=== PATIENT | male | born 1990 | race Caucasian/White ===

== ENCOUNTER 2020-09-29 15:24 | Inpatient (IN) | payer SELFPAY ==
[2020-09-29 15:25] VITALS: BP 148/77; PULSE 98; RESP 17; TEMP 37.1; O2SAT 99; BMI 24.7
--- NOTE | 2020-09-29 15:36 | ED.DCSUM_ITS ---
History of Present Illness Chief Complaint: Substance Abuse Informant: Patient, Significant Other Limited by: - - Anger issues per nursing squad Onset: Month(s) Context: Gradual Onset Timing: Continuous Quality: Greater than 1/5 of vodka per day Location: Not applicable Current Severity: Moderate Maximum Severity: Moderate Worsened by: Significant decrease in alcohol consumption today Relieved by: Nothing Associated Symptoms: Nausea, diarrhea, tremors Narrative: Is a 29-year-old male who presents for alcohol detox. He drinks greater than 1/5 of vodka per day. He went into a rehab program in 2019 after he was cited for driving under the influence. He only had 1 or 2 drinks today. He denies smoking. Last use of marijuana 3 days ago. There is no history of hepatitis. He denies history of pancreatitis. He denies nausea, vomiting or abdominal pain. He denies headache, visual, ocular auditory symptoms. He denies rhinorrhea or congestion. He denies sore throat. He denies chest pain or shortness of breath. He denies bruising easily. He denies black or maroon- colored stool. He denies urologic symptoms. Prior similar symptoms: Yes - 2019 Recent Illness/Hospitalization: Yes - 2019 - Past Medical History (1) Alcoholism Status: Acute Past Medical History - Allergies and Home Meds Allergies/Adverse Reactions: Allergies haloperidol [From Haldol] Allergy (Verified 09/29/20 15:28) Other Primary Care Physician: [facility] Doctor,Out of [NON-STAFF] - Prior records reviewed: No Surgical History: no surgical history Lives: Spouse/ Significant Other Smoking Status: Never smoker Alcohol: Heavy Drugs: Marijuana Review of Systems General: Reports: Sweats. Denies: Chills, Fever, Malaise, Subjective Eyes: Denies: Visual changes - bilaterally, Blurred Vision - bilaterally ENT: Denies: Bilateral ear pain, Rhinorrhea, Sore throat Cardiovascular: Denies: Chest pain, Palpitations Gastrointestinal: Reports: Diarrhea. Denies: Abdominal pain, Nausea, Vomiting, Constipation, Melena, Hematochezia, -, - Musculoskeletal: Denies: Myalgias, Arthralgias, Neck pain, Back pain Skin: Denies: Rash, Abscess Neurological: Denies: Headache, Weakness, Parasthesia Psych: Denies: Depression, Anxiety Endocrine: Denies: Polyuria, Polydipsia Hematologic: Denies: Easy bruising, Easy bleeding Allergy: Denies: Uticaria Physical Exam Vital Signs/Narrative: Vital Signs Temp Pulse Resp BP Pulse Ox 09/29/20 15:25 98.7 F 98 17 148/77 H 99 Inital Vital Signs reviewed: Yes General: Well nourished, Well developed, No Acute Distress Head: Normocephalic, Atraumatic Eyes: Perrl, EOMI. Negative for: Pale conjunctiva, Scleral icterus ENT: Moist mucous membranes, No rhinorrhea Neck: Supple, Nontender, No lymphadenopathy, No JVD Cardiovascular: Regular rate, Regular rhythm, No murmurs, Normal S1, Normal S2 Respiratory: No distress, CTA bilaterally Abdomen: Soft, Nontender, Nondistended, Normal bowel sounds, No masses Rectal: Deferred Back: Nontender, Normal Inspection Extremities: Nontender, No edema Skin: Normal color, No rash Neurological: Alert, Oriented x3, Cranial nerves II-XII grossly intact, Normal Strength, Normal Sensation. Negative for: Normal DTR - Flexors are brisk. He has no clonus or Babinski sign. Psychological: Agitated Diagnostic/Tx/Re-eval - Medical Decision Making Patient has mild withdrawal symptoms. Will initiate treatment in the emergency [place] and obtain appropriate labs for admission to addiction medicine. I was informed by the charge nurse that he is cussing and may not stay. Patient was informed of the rules. He states he would be cooperative. Therefore, will call hospitalist for admission. Blood work to be followed by hospitalist. Patient was treated with Zofran, phenobarbital and Bentyl. Since an IV was started he was ordered at 1 six 201 mg Ativan IV push. ED Disposition - Plan for ED Patient: Disposition: Acute Care Hospital [facility] Diagnosis: Alcohol withdrawal Referrals: [facility] Doctor,Out of [NON-STAFF] -
--- NOTE | 2020-09-29 15:41 | ED.RN ---
THE MANAGER DIALYSIS APPROACHED THIS NURSE ABOUT THE PT BEHAVIOR AND YELLING AT THE STAFF MEMBER. THIS NURSE AND AN ADDITIONAL STAFF MEMBER IN THE ROOM TO SPEAK WITH THE PT AND REVIEW THE RAMP CONTRACT. PT STATES I AGREE. I AGREE. I DON'T CARE. I AGREE THIS IS FUCKING BULLSHIT. THE VISITOR ATTEMPTED TO GET THE PT TO CALM DOWN. THIS NURSE INFORMED THE PT THAT WE NEED TO REVIEW THE VOLUNTEER RAMP CONTRACT. THIS NURSE READ #1 ON THE LIST, PT STATES THIS IS FUCKING BULLSHIT. FUCK YOU. YOU'RE A FUCKING BITCH. THIS NURSE WENT AHEAD AND JUMPED TO #9 ON THE LIST. THE PT STATES SO WHAT IF I SAY SHIT. THEN WHAT ARE YOU GOING TO DO. THIS NURSE ATTEMPTED TO EXPLAIN TO THE PT THAT AGGRESSIVE BEHAVIOR AND YELLING AT STAFF IS NOT APPROPRIATE. THAT THE STAFF ARE HERE TO HELP THE PT AND WANT TO BE ABLE TO PROVIDE APPROPRIATE CARE. THE VISITOR IN THE ROOM REQUESTED FOR THE STAFF TO STEP OUT OF THE ROOM SO SHE COULD SPEAK WITH THE PT IN PRIVATE. BOTH NURSES STARTED TO WALK OUT OF THE ROOM WHEN THE PT STATES FUCK YOU. YOU ARE A COMPLETE BITCH. THIS NURSE CONTACTED OFFICER ALPHONSE TO SPEAK WITH THE PT ABOUT HIS BEHAVIOR. OFFICER ALPHONSE CALLED THIS NURSE BACK IN THE ROOM TO CONTINUE TO REVIEW THE VOLUNTEER CONTRACT. AFTER READING THE CONTRACT, THE PT DID PROVIDE HIS SIGNATURE BUT DID NOT PRINT HIS NAME. THIS NURSE ASKED FOR HIS CONSENT TO PRINT HIS NAME ON THE CONTRACT. THIS NURSE THEN WITNESSED THE CONTRACT. THE PT ASKED NOW WHAT. THIS NURSE ATTEMPTED TO EXPLAIN THAT WE WOULD GET THE PT INTO A GOWN AND START AN IV TO GIVE HIM SOME MEDICATION. THE PT REQUESTED THAT WE ULTRASOUND FOR THE IV. WHILE I WAS ATTEMPTING TO EXPLAIN THAT WE WILL LOOK FOR THE IV, I WAS INTERRUPTED BY THE PT. PT REQUESTING TO SPEAK WITH THE CHARGE NURSE. THE PT WAS INFORMED BY OFFICER ALPHONSE THAT I AM THE CHARGE NURSE. THE PT STATES YOU HAVE GOT TO BE FUCKING KIDDING ME. THE VISITOR AGAIN ATTEMPTED TO GET THE PT TO CALM DOWN AND LISTEN. I THEN EXPLAINED TO THE VISITOR THAT WE WILL LOOK FOR AN IV BUT WE CANNOT GUARANTEE ANYTHING IF HE IS A DIFFICULT STICK. SHE WAS TRYING TO EXPLAIN THAT THE STAFF IS ATTEMPTING TO HELP HIM, THE PT INTERRUPTED HER ALSO.
[2020-09-29 16:40] VITALS: BP 123/100; PULSE 98; RESP 18; TEMP 37.1; O2SAT 98
[2020-09-29] MEDS: Ondansetron ODT 4 MG Tablet PO ×2 (16:46→20:06)
--- NOTE | 2020-09-29 16:50 | PCM.HP.STD ---
<Donald Rushing PA - Last Filed: 09/29/20 17:17> Problem List (1) Alcohol withdrawal Status: Acute (2) Alcoholism Status: Chronic History of Present Illness Date of Admission: 09/29/20 Chief Complaint: Acute withdrawl (alcohol) The patient is a 29 year old male who is being admitted for Acute alcohol withdrawl. Patient endorses drinking a fifth of vodka, at least, every day for the past 10 years. Patient reports his last drink was a [place] hard lemonade today at lunch, at which point he decided that he wanted to be treated for his alcoholism. Patient reports that last week he went to an Emergency department for acute withdrawl, but left AMA. Past Medical History Past Medical History (Chronic Problems): Chronic Problems Alcoholism (Chronic) Allergies haloperidol [From Haldol] Allergy (Verified 09/29/20 15:28) Other Home Medications: Ambulatory Orders Medication Instructions Recorded NK 09/29/20 Surgical History: no surgical history Psychiatric History: Anxiety Lives: Spouse/ Significant Other Smoking Status: Never smoker Alcohol: Heavy Drugs: Marijuana - *Family History Paternal History Items: - - Patient endorses a medical history, although does not know specifics. Maternal History Items: - - Patient endorses a medical history, although does not know specifics Review of Systems Constitutional: Reports: Malaise, Weakness, Fatigue HEENT: Denies: Head Aches, Sinus Congestion, Sinus Drainage Cardiovascular: Denies: Chest Pain, Palpitations Respiratory: Reports: Shortness of Breath. Denies: Cough, Shortness of breath at rest, Sputum production Gastrointestinal: Reports: Abdominal Pain - RUQ pain, Nausea, Vomiting Genitourinary: Denies: Dysuria Musculoskeletal: Denies: Joint Pain, Joint Tenderness Skin: Denies: Rash, Wounds Neurological: Reports: Slurred speech, Tremor. Denies: Focal weakness, Numbness, Tingling Psychiatric: Reports: Anxiety. Denies: Depression, Homicidal Ideations, Suicidal Ideations Hematologic/ Lymphatic: Denies: Easy Bruising, Easy Bleeding VTE Information - Inpt Only VTE Present on Admission: No VTE Mechan Device Prophylaxis: None VTE Pharm Prophylaxis ordered?: No Patient Problems: Active and Suspected Problems Alcohol withdrawal (Acute) Tetrahydrocannabinol (THC) use disorder, mild, abuse (Acute) - Physical Exam Vitals/I&O's: Vital Signs Temp Pulse Resp BP Pulse Ox 98.7 F 98 17 148/77 H 99 09/29/20 15:25 09/29/20 15:25 09/29/20 15:25 09/29/20 15:25 09/29/20 15:25 Oxygen Delivery Method Room Air Weight: 187 lb 6.287 oz Body Mass Index (BMI) 24.7 General: Alert, Oriented x3, Cooperative, - - Patient actively vomiting and anxious upon exam. HEENT: Atraumatic, PERRLA, EOMI, Normocephalic Neck: Supple, No JVD, Negative Carotid Bruits Lungs: Clear to auscultation, Normal air movement Cardiovascular: Regular rate, No murmurs Abdomen: Bowel Sounds Present, Soft, Non Tender, Tender - RUQ pain Extremities: No edema, Capillary Refill Less than 3 Seconds Skin: No rashes, No breakdown Musculoskeletal: No Tenderness to Palpation of Joints or Extremities Neurological: Cranial nerves II-XII grossly intact Psych/Mental Status: Normal Affect, Appropriate, Anxious Assessment/Plan All Active Problems Alcohol withdrawal (Acute) Tetrahydrocannabinol (THC) use disorder, mild, abuse (Acute) Patient is a 29 year old male who reports to the ED for acute on chronic alcohol withdrawl. Patient endorses a 10 year history of heavy drinking and has unsucessfully tried to stop drinking in the past. 1) Acute alcohol withdrawl, chronic alcohol abuse. Medical stabilization per CIWA protocol. Phenobarbitol taper. PRN for somatic complaints. Labs & Toxicology screen pending. [employer] consult. CIWA/Ativan protocol. 2) Anxiety: untreated. Reccomend outpatient follow up. DVT prophylaxis; not indicated, low risk. Patient was seen by Donald Rushing PA-C under the supervision of Dr. Pimentel. <Kelli Pimentel - Last Filed: 09/29/20 18:40> Problem List (1) Tetrahydrocannabinol (THC) use disorder, mild, abuse Status: Acute (2) Alcoholism Status: Chronic (3) Alcohol withdrawal Status: Acute History of Present Illness I agree with the above and the following is a representation my independent history and physical examination Mr. Alves is a 29 year old WM with a PMH of alcohol abuse presented to the emergency department at [facility] on 09/29/2020 for acute alcohol withdrawal. The patient states upon my examination he has had at least 70-80 admissions for detox. He reports that he drinks 1/5 of 100 proof vodka daily and that his last drink was approximately 11 AM. He states he is only had 2 drinks today so far. He has no significant medical history other than his alcoholism. He does report THC use intermittently. In the emergency department he was complaining of some nausea and did have some emesis. He has no known history of hepatitis. He is currently having some tremor and agitation. He reports that he did require intubation recently for alcohol withdrawal and seem to be familiar with both Precedex and Ativan. He was very aggressive and abusive intermittently in the emergency department. Upon my exam and discussion with the patient he intermittently used foul language and called me a bitch. At that time I left the room and told him if he decided to be several and discuss his admission appropriately that we would resume the conversation and he did eventually apologize and agreed to being admitted. Vital signs in the emergency department were stable. His labs have not yet been obtained as he had been a difficult stick. In the emergency department he was given with Zofran for his nausea and vomiting followed by his phenobarb, Ativan, and a dose of Bentyl. Admitted to [facility] 3 and monitored as he progresses through his withdrawal. He is a high risk to leave AMA. Past Medical History Allergies haloperidol [From Haldol] Allergy (Verified 09/29/20 15:28) Other Review of Systems Constitutional: Reports: Chills, Malaise, Weakness, Fatigue. Denies: Anorexia, Fever, Night Sweats, Weight Change Eyes: Denies: Blurred vision, Double vision, Pain, Redness, Vision Change HEENT: Denies: Difficulty Hearing, Difficulty Swallowing, Head Aches, Nasal bleeding, Nasal Congestion, Sinus Congestion, Sinus Drainage, Sore Throat Cardiovascular: Denies: Chest Pain, Edema, Palpitations, Syncope Respiratory: Reports: Shortness of Breath. Denies: Shortness of breath at rest, Sputum production, Wheezing Gastrointestinal: Reports: Abdominal Pain, Nausea, Vomiting. Denies: Constipation, Diarrhea Genitourinary: Denies: Dysuria Musculoskeletal: Reports: Muscle pain. Denies: Joint Pain, Joint stiffness, Joint swelling, Joint Tenderness Skin: Denies: Rash, Wounds Neurological: Reports: Seizures - History of withdrawal seizures. Denies: Focal weakness, Numbness, Tingling, Tremor Psychiatric: Reports: Anxiety. Denies: Depression Endocrine: Denies: Change in Body Habitus, Heat/ Cold Intolerance, Polydipsia, Polyuria Hematologic/ Lymphatic: Denies: Adenopathy, Anemia, Easy Bruising, Easy Bleeding - Physical Exam Vitals/I&O's: Vital Signs Temp Pulse Resp BP Pulse Ox 98.7 F 98 18 123/100 H 98 09/29/20 15:25 09/29/20 17:09 09/29/20 17:09 09/29/20 17:09 09/29/20 17:09 Oxygen Delivery Method Room Air Weight: 85 kg Body Mass Index (BMI) 24.7 General: Alert, Oriented x3, Cooperative, Well developed, Well nourished, - - Patient actively vomiting and anxious upon exam. Patient was very argumentative during my exam HEENT: Atraumatic, PERRLA, EOMI, Normocephalic Oral: Moist Mucosa Neck: Supple, Trachea Midline Lungs: Clear to auscultation, Normal air movement, No rhonchi, No wheeze, No rales Cardiovascular: Regular rate, Regular Rhythm, Normal S1, Normal S2, No murmurs, No Ectopic Activity, No rub noted, No Gallop Abdomen: Bowel Sounds Present, Soft, Non-Distended, Tender - RUQ pain-mild Extremities: No clubbing, No cyanosis, No edema, Capillary Refill Less than 3 Seconds Skin: No rashes, No breakdown Musculoskeletal: No Tenderness to Palpation of Joints or Extremities Neurological: Cranial nerves II-XII grossly intact, Neuro grossly intact Psych/Mental Status: Impulsive, Irrational Behavior, - - Argumentative inappropriate at times Assessment/Plan ASSESSMENT Acute alcohol withdrawal Chronic alcohol abuse THC abuse Anxiety PLAN -Admit to MS 3 -Phenobarb taper with as needed Ativan for CIWA -Supportive medications for detox -180 consult -Patient has had seizures and required intubation for withdrawal in the past -Under to closely for more acute needs -Patient is high risk for AMA discharge -Patient understands and has signed the paperwork for voluntary alcohol withdrawal treatment Inpatient E&M: 73655 Init Hosp L2
--- NOTE | 2020-09-29 16:52 | ED.RN ---
med surg 3 text to say pt was okay for floor. Rn still trying to get blood work from pt. multiple attempts made.
[2020-09-29] MEDS: LORazepam 1 MG Tablet PO (17:05)
[2020-09-29] MEDS: Dicyclomine 10 MG Capsule 20 MG PO (17:06)
[2020-09-29] MEDS: Phenobarbital 32.4 MG Tablet 97.2 MG PO ×2 (17:06→20:21)
[2020-09-29 17:09] VITALS: BP 123/100; PULSE 98; RESP 18; O2SAT 98
[2020-09-29 17:58] LABS: Absolute Neutrophil Count 6.1 X10^3/uL (2.0-7.7); Basophil# 0.05 X10^3/uL; Basophil% 0.6 % (0-1); Eosinophil# 0.14 X10^3/uL; Eosinophils% 1.7 % (0-5); Hematocrit 44.3 % (40-54); Hemoglobin 15.1 g/dL (13.0-16.5); Lymphocyte % 20.6 % (19-41); Mean Corp Hgb Conc 34.1 g/dL (32-36); Mean Corpuscular Volume 88.1 fL (80-94); Mean Platelet Vol. 10.2 fl (6.2-12.0); Monocyte# 0.23 X10^3/uL; Monocyte% 2.8 % (0-10); NRBC Flagged by Analyzer 0 % (0-5); Neutrophil # 6.12 X10^3/uL (2.7-7.7); Neutrophil % 74.1 % (47-70); Platelet Count 260 K/mm3 (150-450); RBC Distribution Width CV 12.2 % (11.6-14.6); RBC Distribution Width SD 39.2 fl (35.1-43.9); Red Blood Count 5.03 M/mm3 (4.6-6.2); White Blood Count 8.3 K/mm3 (4.4-11.0)
[2020-09-29 18:03] VITALS: BP 123/100; PULSE 98; RESP 18; TEMP 37.1; O2SAT 98
[2020-09-29 18:17] VITALS: BMI 24.2
[2020-09-29 18:19] VITALS: BMI 24.2
[2020-09-29 18:21] LABS: ALB/GLOB Ratio 1.1 RATIO (0.9-2.4); AST(SGOT) 30 U/L (15-37); Alanine Aminotransfer ALT/SGPT 32 U/L (16-61); Alkaline Phosphatase 72 U/L (45-117); Anion Gap 7 (5-15); BUN 8 mg/dL (7-18); BUN/Creat Ratio 9.6 RATIO (10-20); Calcium,Total 8.4 mg/dL (8.5-10.1); Chloride 108 mmol/L (98-107); Creatinine, Serum 0.83 mg/dL (0.70-1.30); EST Glomerular Filtration Rate 116 mL/min (>60); Est Glom Filt Rate - Afr Amer 140 mL/min (>60); Estimated Creatinine Clearance 148.41 ml/min; Globulin 3.6 g/dL (2.2-4.2); Glucose 114 mg/dL (74-106); Potassium 3.5 mmol/L (3.5-5.1); Protein, Total 7.6 g/dL (6.4-8.2); Sodium Level 142 mmol/L (136-145)
[2020-09-29 18:26] LABS: Amphetamine Urine VISTA NEGATIVE (<1000 ng/mL); Barbiturate Urine VISTA NEGATIVE (< 200 ng/mL); Benzodiazepine Urine VISTA POSITIVE (< 200 ng/mL); Cocaine Urine VISTA NEGATIVE (< 300 ng/mL); Ecstacy Urine VISTA NEGATIVE (< 500 ng/mL); Methadone Urine VISTA NEGATIVE (< 300 ng/mL); PCP Urine VISTA NEGATIVE (< 25 ng/mL); THC Urine VISTA NEGATIVE (< 50 ng/mL); Vista UDS pH Range 7
[2020-09-29 18:43] VITALS: BP 112/98; PULSE 86; RESP 16; TEMP 36.7; O2SAT 95
[2020-09-29 18:47] LABS: Magnesium 1.9 mg/dL (1.6-2.6); Phosphorus 3.1 mg/dL (2.5-4.9)
--- NOTE | 2020-09-29 19:15 | CM.ED ---
Social Work Telephone call to [facility], Shannan. Shannan updated on patient admission to RAMP program. George Franco MSW, ASHLEYS
[2020-09-29] MEDS: ChlorproMAZINE 50 MG/2 ML Ampul 12.5 MG IM (19:52)
[2020-09-30 00:38] VITALS: BP 131/80; PULSE 89; RESP 16; TEMP 36.7; O2SAT 95
[2020-09-30] MEDS: LORazepam 1 MG Tablet 2 MG PO ×2 (00:53→12:32)
[2020-09-30] MEDS: traZODone 100 MG Tablet PO (00:53)
[2020-09-30] MEDS: Phenobarbital 32.4 MG Tablet 97.2 MG PO ×6 (00:53→20:00)
[2020-09-30] MEDS: Gabapentin 300 MG Capsule PO ×2 (00:53→12:32)
[2020-09-30 04:25] VITALS: BP 110/54; PULSE 105; RESP 18; TEMP 36.9; O2SAT 95
[2020-09-30] MEDS: Ondansetron ODT 4 MG Tablet PO (04:29)
[2020-09-30 08:30] VITALS: BP 107/63; PULSE 68; RESP 18; TEMP 37; O2SAT 96
[2020-09-30] MEDS: Multivitamins,Ther W-Minerals Tablet 1 TABLET PO (08:46)
[2020-09-30] MEDS: Thiamine Hydrochloride 100 MG Tablet PO (08:46)
[2020-09-30] MEDS: Folic Acid 1 MG Tablet PO (08:46)
[2020-09-30] MEDS: hydrOXYzine PAM 25 MG Capsule 50 MG PO (12:32)
[2020-09-30] MEDS: Dicyclomine 10 MG Capsule 20 MG PO (12:32)
--- NOTE | 2020-09-30 13:55 | PCM.PN.HOSP ---
Patient Problems: Active and Suspected Problems Alcohol withdrawal (Acute) Tetrahydrocannabinol (THC) use disorder, mild, abuse (Acute) Reason for Visit: Follow-up for alcohol withdrawal Objective: Patient having severe symptoms of alcohol withdrawal including tremor, restlessness anxiety and shakiness. Denies GI bleed. Physical exam General: Restless, anxious. Oriented x3 HEENT: Atraumatic, PERRLA, EOMI, Normocephalic Oral: No Gingival or Mucosal Lesions/ Ulcerations Neck: Supple, No JVD, Negative Carotid Bruits Lungs: Air entry equal in bilateral lung bases. No crepitation/rhonchi Cardiovascular: Regular rate, Regular Rhythm, Normal S1, Normal S2, No murmurs Abdomen: Bowel Sounds Present, Soft, Non Tender, Non-Distended : No renal angle tenderness. No suprapubic tenderness. Extremities: No edema, Capillary Refill Less than 3 Seconds Skin: No rashes, No breakdown Musculoskeletal: No Tenderness to Palpation of Joints or Extremities Neurological: Cranial nerves II-XII grossly intact, Deep Tendon Reflexes 2+/4 and Symmetrical, Neuro grossly intact Psych/Mental Status: Fidgety. Vitals/I&O's: Vital Signs Temp Pulse Resp BP Pulse Ox 98.6 F 68 18 107/63 96 09/30/20 08:30 09/30/20 08:30 09/30/20 08:30 09/30/20 08:30 09/30/20 08:30 Oxygen Delivery Method Room Air Weight: 183 lb 6.4 oz Body Mass Index (BMI) 24.2 Intake and Output for Last 24 Hours 09/28/20 09/29/20 09/30/20 23:59 23:59 23:59 Intake Total 100 / 100 800 / 800 Output Total 100 / 100 Balance 0 / 0 800 / 800 Laboratory Results 09/29/20 17:43: WBC 8.3, RBC 5.03, Hgb 15.1, Hct 44.3, MCV 88.1, MCH 30.0, MCHC 34.1, RDW Std Deviation 39.2, RDW Coeff of [place] 12.2, Plt Count 260, MPV 10.2, Immature Gran % (Auto) 0.200, Neut % (Auto) 74.1 H, Lymph % (Auto) 20.6, [place] % (Auto) 2.8, Eos % (Auto) 1.7, Baso % (Auto) 0.6, Absolute Neuts (auto) 6.1, Absolute Lymphs (auto) 1.70, Nucleated RBC % 0 09/29/20 17:43: Sodium 142, Potassium 3.5, Chloride 108 H, Carbon Dioxide 27.0, Anion Gap 7, BUN 8, Creatinine 0.83, Estim Creat Clear Calc 148.41, Est GFR (MDRD) Af Amer 140, Est GFR (MDRD) Non-Af 116, BUN/Creatinine Ratio 9.6 L, Glucose 114 H, Calcium 8.4 L, Total Bilirubin 0.90, AST 30, ALT 32, Alkaline Phosphatase 72, Total Protein 7.6, Albumin 4.0, Globulin 3.6, Albumin/Globulin Ratio 1.1 09/29/20 17:43: Ethyl Alcohol 300.0 09/29/20 17:43: Phosphorus 3.1, Magnesium 1.9 09/29/20 17:55: Urine Opiates Screen NEGATIVE, Urine Methadone Screen NEGATIVE, Ur Barbiturates Screen NEGATIVE, Ur Phencyclidine Scrn NEGATIVE, Ur Amphetamines Screen NEGATIVE, U Methamphetamin-MDMA NEGATIVE, U Benzodiazepines Scrn POSITIVE H, Urine Cocaine Screen NEGATIVE, U Cannabinoids Screen NEGATIVE, Ur Drug Screen Comment Current Medications Acetaminophen (Acetaminophen 325 Mg Tablet) 650 mg PO Q6H PRN PRN PRN Reason: Pain Score 1-10/Temp > 100.7 F Chlorpromazine HCl (Chlorpromazine 50 Mg/2 Ml Ampul) 12.5 mg IM Q6H PRN PRN PRN Reason: intractable hiccups Last Admin: 09/29/20 19:52 Dose: 12.5 mg Documented by: Dicyclomine HCl (Dicyclomine 10 Mg Capsule) 20 mg PO Q6H PRN PRN PRN Reason: abdominal discomfort Last Admin: 09/30/20 12:32 Dose: 20 mg Documented by: Folic Acid (Folic Acid 1 Mg Tablet) 1 mg PO DAILY@0800 EPI Last Admin: 09/30/20 08:46 Dose: 1 mg Documented by: Gabapentin (Gabapentin 300 Mg Capsule) 300 mg PO Q8H PRN PRN PRN Reason: moderate to severe anxiety Last Admin: 09/30/20 12:32 Dose: 300 mg Documented by: Hydroxyzine Pamoate (Hydroxyzine Natalya 25 Mg Capsule) 50 mg PO Q4H PRN PRN PRN Reason: mild anxiety Last Admin: 09/30/20 12:32 Dose: 50 mg Documented by: Loperamide HCl (Loperamide 2 Mg Capsule) 2 mg PO Q4H PRN PRN PRN Reason: LOOSE STOOLS Lorazepam (Lorazepam 1 Mg Tablet) 2 mg PO Q2H PRN PRN; Protocol PRN Reason: CIWA score > 8 but <15 Last Admin: 09/30/20 12:32 Dose: 2 mg Documented by: Lorazepam (Lorazepam 1 Mg Tablet) 2 mg PO UD PRN; Protocol PRN Reason: CIWA score >/=15. Lorazepam (Lorazepam 2 Mg/Ml Syringe) 2 mg IV Q2H PRN PRN; Protocol PRN Reason: CIWA score > 8 but <15 Lorazepam (Lorazepam 2 Mg/Ml Syringe) 2 mg IV UD PRN; Protocol PRN Reason: CIWA score >/=15. Multivitamins/Minerals (Multivitamins,Ther W-Minerals Tablet) [facility] Last Admin: 09/30/20 08:46 Dose: 1 tablet Documented by: Ondansetron HCl (Ondansetron Odt 4 Mg Tablet) 4 mg PO Q8H PRN PRN PRN Reason: nausea, emesis if cannot swall Last Admin: 09/30/20 04:29 Dose: 4 mg Documented by: Phenobarbital (Phenobarbital 32.4 Mg Tablet) 97.2 mg PO Q4H [facility]; Taper Stop: 10/04/20 04:29 Last Admin: 09/30/20 12:32 Dose: 97.2 mg Documented by: Sodium Chloride (0.9% Saline Lock 10 Ml Syringe) 10 - 40 ml IV UD PRN PRN Reason: SALINE FLUSH Thiamine HCl (Thiamine Hydrochloride 100 Mg Tablet) 100 mg [facility] Last Admin: 09/30/20 08:46 Dose: 100 mg Documented by: Trazodone HCl (Trazodone 100 Mg Tablet) 100 mg PO QHS PRN PRN Reason: INSOMNIA Last Admin: 09/30/20 00:53 Dose: 100 mg Documented by: Medical Necessity - Tobacco Use Smoking Status: Never smoker Tobacco Use: Non-smoker Assessment/Plan All Active Problems Alcohol withdrawal (Acute) Tetrahydrocannabinol (THC) use disorder, mild, abuse (Acute) This 29-year-old: Patient is being admitted for acute alcohol withdrawal 1. Acute alcohol withdrawal: Patient is on phenobarbital scheduled and then taper as per CIWA score. Patient other supportive medications including Neurontin, hydroxyzine, Motrin and trazodone. Protonix added. 2. Chronic alcohol use and dependence. History of severe alcohol withdrawal which required intubation and seizures in the past. Patient is also high risk for AMA. 3. VTE prophylaxis: Low risk. Early ambulation encouraged Inpatient E&M: 82128 Subs Hosp L2
[2020-09-30 14:22] VITALS: BP 118/64; PULSE 88; RESP 18; TEMP 36.8; O2SAT 97
[2020-09-30] MEDS: Pantoprazole Sodium 40 MG Tablet PO (14:24)
[2020-09-30] MEDS: 0.9% Saline Lock 10 ML Syringe IV (14:32)
[2020-09-30] MEDS: LORazepam 2 MG/ML Syringe IV (14:32)
--- NOTE | 2020-09-30 20:24 | ED.RN ---
pt states it is inhumane that we don't allow people to have their phones. talked to pt about policy & contract that he signed. pt refused vitals. pt states he wants to leave and wants to know if he has to sign something. pt asked if i could call contact daphney. called daphney and stated she could be here within 20-30 mintutes. ama paper signed. dr & supervisor in charge notified. removed iv.
--- NOTE | 2020-09-30 21:14 | NURSING ---
Security and [place] [employer] escorting patient out at this time.
--- NOTE | 2020-10-01 07:55 | DS.PCM_ITS ---
Discharge Date and Diagnosis - Problem List Patient Problems: Active and Suspected Problems Alcohol withdrawal (Acute) Tetrahydrocannabinol (THC) use disorder, mild, abuse (Acute) Date of Admission: 09/29/20 Date of Discharge: 09/30/20 - Primary Discharge Diagnosis Acute Problems: Active Problems Alcohol withdrawal (Acute) Tetrahydrocannabinol (THC) use disorder, mild, abuse (Acute) - Secondary Discharge Diagnosis Chronic Problems: Chronic Problems Alcoholism (Chronic) Hospital Course and Treatment Summary of Care Provided: [] This 29-year-old man patient was admitted for acute alcohol withdrawal 1. Acute alcohol withdrawal: Patient was treated withphenobarbital scheduled and then taper as per CIWA score. Patient other supportive medications including Neurontin, hydroxyzine, Motrin and trazodone. Protonix was added. 2. Chronic alcohol use and dependence. History of severe alcohol withdrawal which required intubation and seizures in the past. Patient is also high risk for AMA. 3. VTE prophylaxis: Low risk. Early ambulation encouraged Patient signed AMA at about 8:35 PM on 09/30/2020. Patient Problems: Active and Suspected Problems Alcohol withdrawal (Acute) Tetrahydrocannabinol (THC) use disorder, mild, abuse (Acute) Objective: The patient was seen and examined in the morning on 09/30/2020. She signed AMA on the night of 09/30. Please see physical exam findings and the progress note of the same date. - Physical Exam Vitals/I&O's: Vital Signs Temp Pulse Resp BP Pulse Ox 98.2 F 88 18 118/64 97 09/30/20 14:22 09/30/20 14:22 09/30/20 14:22 09/30/20 14:22 09/30/20 14:22 Oxygen Delivery Method Room Air Weight: 183 lb 6.4 oz Body Mass Index (BMI) 24.2 Intake and Output for Last 24 Hours 09/29/20 09/30/20 10/01/20 23:59 23:59 23:59 Intake Total 100 / 100 800 / 800 Output Total 100 / 100 Balance 0 / 0 800 / 800 Home Medications: Medications to take at Discharge NK 09/29/20 Primary Care Physician: [facility] Doctor,Out of [NON-STAFF] - Medical Necessity - Tobacco Use Smoking Status: Never smoker Tobacco Use: Non-smoker Meaningful Use Info Meaningful Use Diagnoses (Choose all that apply): None applicable Inpatient E&M: 89527 Disch Hosp
== END 2020-09-30 21:15 | disposition home or self-care (01) | DRG 897 ==
LOC: ED 16:29 → MS3 17:39
PROVIDERS: Physician Assistant; Admitting Provider Internal Medicine; Emergency Provider Emergency Medicine; Visit Provider Internal Medicine
DX: F10.239 Alcohol dependence with withdrawal, unspecified (principal); F12.10 Cannabis abuse, uncomplicated
CPT/HCPCS: 80053; 80307; 82077; 83735; 84100; 85025; A4216

== ENCOUNTER 2020-10-09 02:39 | Inpatient (IN) | payer SELFPAY ==
[2020-10-09] VITALS (8 sets, daily range): BP systolic 109–126; BP diastolic 53–109; PULSE 71–129; RESP 16–18; TEMP 36.7–37.2; O2SAT 96–99; BMI 24.0; BMI 24.1
--- NOTE | 2020-10-09 02:43 | HP.PCM_ITS ---
Problem List (1) Alcoholism Status: Chronic (2) Alcohol withdrawal Status: Acute (3) Tetrahydrocannabinol (THC) use disorder, mild, abuse Status: Chronic History of Present Illness Date of Admission: 10/09/20 Chief Complaint: Alcohol withdrawal The patient is a 29 year old M with a significant history of alcohol abuse who presented to [facility] ED with alcohol withdrawal symptoms and the need for detoxification. Patient presented to [facility] ED on 10/08/2020, the same day that his withdrawal symptoms started. He reports his withdrawal symptoms as shakiness; nausea, vomiting diarrhea,Headache and anxiety . Typically he drinks about 1/5 and a half of 100% proof vodka daily. On the day of presentation at [facility] ED he only drank 1 bottle of beer. Last time he drank vodka was on 10/07/2020. He reports drinking for the last 9 to 10 years. At [facility] ED patient was given multiple doses of Ativan; Gisela rium; Zofran and banana bag.. His ethanol level was 343. His urine was positive for barbiturates. Patient denies taking any barbiturates on his own. He was at our hospital recently and thinks that the barbiturates might have come from our hospital. He reported at home the only medication he takes is gabapentin. Reportedly he takes gabapentin for tremors. Patient reports history of alcohol withdrawal seizures. Reported history of intubation secondary to alcoholism. Of note patient was at a hospital for alcohol withdrawal on 09/29/2020 but left AMA on 09/30/2020. On the admission he reported that he had previously checked into some emergency department a week ago but left AMA too. Past Medical History Past Medical History (Chronic Problems): Chronic Problems Alcoholism (Chronic) Tetrahydrocannabinol (THC) use disorder, mild, abuse (Chronic) Allergies haloperidol [From Haldol] Allergy (Verified 09/29/20 18:16) I flip out Home Medications: Ambulatory Orders Medication Instructions Recorded NK 09/29/20 Surgical History: no surgical history Psychiatric History: Anxiety Smoking Status: Never smoker Tobacco Use: Non-smoker Drugs: Marijuana - *Family History Paternal History Items: Cancer, - Maternal History Items: Cancer - Lung cancer, - Review of Systems Constitutional: Denies: Chills, Fever, Weight Change HEENT: Reports: Head Aches. Denies: Sinus Congestion, Sinus Drainage Cardiovascular: Denies: Chest Pain, Palpitations Respiratory: Reports: Shortness of Breath - Nurse report that per squad who brought patient to [facility] patient was having shortness of breath.. Denies: Cough, Shortness of breath at rest, Sputum production Gastrointestinal: Reports: Diarrhea, Nausea, Vomiting. Denies: Abdominal Pain Genitourinary: Denies: Dysuria Musculoskeletal: Denies: Joint Pain, Joint Tenderness Skin: Denies: Rash, Wounds Neurological: Reports: Tremor. Denies: Focal weakness, Numbness, Tingling Psychiatric: Reports: Anxiety. Denies: Depression, Homicidal Ideations, Suicidal Ideations Hematologic/ Lymphatic: Denies: Easy Bruising, Easy Bleeding VTE Information - Inpt Only VTE Present on Admission: No VTE Mechan Device Prophylaxis: None VTE Pharm Prophylaxis ordered?: No Reason prophylaxis not ordered:: Treatment Not Indicated - Low risk; encourage ambulate. Patient Problems: Active and Suspected Problems Alcohol withdrawal (Acute) - Physical Exam Vitals/I&O's: Vital Signs Temp Pulse Resp BP Pulse Ox 98.4 F 88 16 119/74 97 10/09/20 02:37 10/09/20 02:37 10/09/20 02:37 10/09/20 02:37 10/09/20 02:37 Oxygen Delivery Method Room Air Weight: 82.8 kg Body Mass Index (BMI) 24.0 General: Alert, Oriented x3, Cooperative HEENT: Atraumatic, PERRLA, EOMI, Normocephalic Neck: Supple, No JVD, Negative Carotid Bruits Lungs: Clear to auscultation, Normal air movement Cardiovascular: Regular rate, Normal S1, Normal S2, No murmurs Abdomen: Bowel Sounds Present, Soft, Non Tender Extremities: No edema, Capillary Refill Less than 3 Seconds Skin: No rashes, No breakdown Musculoskeletal: No Tenderness to Palpation of Joints or Extremities Neurological: Cranial nerves II-XII grossly intact, - - Tremors Psych/Mental Status: Anxious Current Medications Sodium Chloride (0.9% Saline Lock 10 Ml Syringe) 10 - 40 ml IV UD PRN PRN Reason: SALINE FLUSH Assessment/Plan All Active Problems Alcohol withdrawal (Acute) The patient is a 29 year old M with a significant history of alcohol abuse who presented to [facility] ED with alcohol withdrawal symptoms and the need for detoxification; and transferred to our hospital for alcohol detoxification program. Alcohol dependence and desire for detoxification Labs from [facility] ED was reviewed. Labs was remarkable for total bili of 1.1 (normal 0.2-1.0). AST and ALT were normal. Urine drug screen from [facility] ED was reviewed. It showed positive benzodiazepines and barbiturates.. Of note patient was given benzodiazepine at the outside hospital with time of collection of urine after benzodiazepine administration. Alcohol level at [facility] ED was 343. Chest x-ray from [facility] ED interpreted by radiology as no acute cardiopulmonary process. Actual image of chest x-ray was independently interpreted. No acute cardiopulmonary process noted. Patient will be started on phenobarbital and other adjunctive medications: Gabapentin as needed; dicyclomine as needed; Vistaril as needed; methocarbamol as needed; clonidine as needed; Imodium as needed; trazodone as needed; Zofran as needed; scheduled thiamine; and schedule folic acid.. Monitor CIWA score. As needed Ativan ordered based on CIWA scores. Tobacco abuse Counseled Nicotine patch prescribed. DVT prophylaxis Low risk Encourage to ambulate Inpatient E&M: 43668 Init Hosp L3
[2020-10-09] MEDS: LORazepam 2 MG/ML Syringe IV ×5 (02:55→12:33)
[2020-10-09] MEDS: 0.9% Saline Lock 10 ML Syringe IV ×5 (02:57→12:33)
[2020-10-09] MEDS: Phenobarbital 32.4 MG Tablet 97.2 MG PO ×5 (02:57→18:16)
--- NOTE | 2020-10-09 08:12 | PCM.PN.BLA ---
Progress Note 29-year-old gentleman with history of chronic alcohol abuse presented with acute alcohol withdrawal 1. Acute alcohol withdrawal ?Admitted to regular nursing floor for stabilization using phenobarb per 2. Chronic alcohol dependence ?Counseled on cessation 3. Tobacco dependence - Counseled on cessation, offered nicotine patch for tobacco cravings 4. DVT prophylaxis ?Low risk did encourage early ambulation STROKE Vital Signs/Narrative: Vital Signs Temp Pulse Resp BP Pulse Ox 10/09/20 04:57 99 F 127 H 18 126/64 H 97
[2020-10-09] MEDS: Thiamine Hydrochloride 100 MG Tablet PO (09:53)
[2020-10-09] MEDS: Folic Acid 1 MG Tablet PO (09:53)
--- NOTE | 2020-10-09 10:18 | CASEMGMT ---
Social Work Note Pt is RAMP pt and listed as self-pay. SW in to speak with pt. SW introduced self and role at [facility]. SW asked pt about insurance. Pt states he has [employer] insurance. SW informed pt that he is listed as self-pay here. Pt again states he has [employer] insurance. Pt denied any financial concerns at this time, denied wanting any financial resources. Melita Jiménez AIRCRAFT INSTRUMENT MECHANIC, FUR TRIMMING MACHINE OPERATOR
[2020-10-09] MEDS: Acetaminophen 325 MG Tablet 650 MG PO (10:46)
--- NOTE | 2020-10-09 11:07 | ADDICTION ---
This justowriter operator attempted to meet with PT. PT was experiencing severe w/d sx and was actively working with RN. This justowriter operator will attempt to meet with PT at next visit on 10/10/20.
[2020-10-09] MEDS: Ondansetron 8 MG Tablet PO (14:50)
[2020-10-09] MEDS: Gabapentin 300 MG Capsule PO (14:50)
[2020-10-09] MEDS: hydrOXYzine PAM 25 MG Capsule 50 MG PO (20:14)
[2020-10-09] MEDS: traZODone 100 MG Tablet PO (20:15)
--- NOTE | 2020-10-09 20:22 | NURSING ---
Pt is refusing phenobarbitol and Ativan saying they are not doing anything for me. Educated pt on how these meds work. He is irritable.
--- NOTE | 2020-10-10 05:17 | NURSING ---
Patient signed out AMA at this time. States personal reasons.
--- NOTE | 2020-10-10 07:44 | PCM.DC.SUM ---
Discharge Date and Diagnosis - Problem List Patient Problems: Active and Suspected Problems Alcohol withdrawal (Acute) Date of Admission: 10/09/20 Date of Discharge: 10/10/20 - Primary Discharge Diagnosis Acute Problems: Active Problems Alcohol withdrawal (Acute) - Secondary Discharge Diagnosis Chronic Problems: Chronic Problems Alcoholism (Chronic) Tetrahydrocannabinol (THC) use disorder, mild, abuse (Chronic) Hospital Course and Treatment Summary of Care Provided: 29-year-old gentleman with history of chronic alcohol abuse presented with acute alcohol withdrawal 1. Acute alcohol withdrawal ?Admitted to regular nursing floor for stabilization using phenobarb per hour ?Patient left AMA a day after his admission 2. Chronic alcohol dependence ?Counseled on cessation 3. Tobacco dependence - Counseled on cessation, offered nicotine patch for tobacco cravings 4. DVT prophylaxis ?Low risk did encourage early ambulation Patient Problems: Active and Suspected Problems Alcohol withdrawal (Acute) Objective: Left AMA before being evaluated for the day - Physical Exam Vitals/I&O's: Vital Signs Temp Pulse Resp BP Pulse Ox 98.3 F 94 16 126/109 H 97 10/09/20 22:56 10/09/20 22:56 10/09/20 22:56 10/09/20 22:56 10/09/20 18:14 Oxygen Delivery Method Room Air Weight: 82.8 kg Body Mass Index (BMI) 24.0 Intake and Output for Last 24 Hours 10/08/20 10/09/20 10/10/20 23:59 23:59 23:59 Intake Total 200 / 200 Balance 200 / 200 Home Medications: Medications to take at Discharge NK 09/29/20 Primary Care Physician: Napoleon Galvan [Other] Disposition: Against Medical Advice Medical Necessity - Tobacco Use Smoking Status: Never smoker Tobacco Use: Non-smoker Meaningful Use Info Meaningful Use Diagnoses (Choose all that apply): None applicable Inpatient E&M: 61851 Disch Hosp
== END 2020-10-10 05:17 | disposition left against medical advice (07) | DRG 894 ==
PROVIDERS: Admitting Provider Hospitalist; Visit Provider Internal Medicine
DX: F10.239 Alcohol dependence with withdrawal, unspecified (principal); F17.200 Nicotine dependence, unspecified, uncomplicated
CPT/HCPCS: A4216